=== PATIENT | female | born 1990 | race Caucasian/White ===

== ENCOUNTER 2025-07-10 13:00 | Outpatient (AMB) | payer OTHER, SELFPAY ==
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
[2025-07-10 13:05] VITALS: BP 118/58; PULSE 70; RESP 14; TEMP 36.4; O2SAT 98; BMI 28.9
--- OUTSIDE RECORDS SUMMARY | 2025-07-10 19:32 | XMS_ITS | Clinical Summary ---
Author Organization 175 [facility] Address [address] [place] [address] Phone Care Team Providers Care Scientific Helper Name Role Phone Jennifer Jeronimo MD Primary Care Provider [phone] Allergies No known active allergies Medications dicyclomine (BENTYL) 20 mg tablet TAKE 1 TABLET BY MOUTH 4 TIMES A DAY. 360 tablet 1 12/27/2024 Active Active Problems Problem Noted Date Diagnosed Date Burping 06/17/2024 Epigastric pain 06/17/2024 Heartburn 06/17/2024 Nausea 06/17/2024 Hidradenitis 08/21/2015 Overview (06/17/2024): Dr Gresham ADHD (attention deficit hyperactivity disorder) 02/16/2012 Overview (06/17/2024): [facility], Dr Manzo Anemia 12/03/2009 Immunizations Immunization Administration Dates Next Due Tdap Tetanus diptheria acell ular pertussis (Boostrix; Adacel) 7yo and older 12/30/2010 Surgical History Surgery Date Site/Laterality Comments TONSILLECTOMY 05/2007 PROCEDURE: HISTORICAL TONSILLECTOMY ESOPHAGOGASTRODUODENOSCOPY 02/24/2021 PROCEDURE: MO EGD TRANSORAL BIOPSY SINGLE/MULTIPLE; COMMENT: normal exam, random biopsy pending Medical History Medical History Date Comments Heartburn DX:Heartburn Epigastric pain DX:Epigastric pa in Nausea DX:Nausea Burping DX:Burping Stress at work DX:Stress at wor k Esophageal reflux DX:Esophageal reflux Depressive disorder DX:Depressiv e disorder Family History Medical History Relation Name Comments Breast cancer Aunt Alcohol/Drug Brother Hypertension Father Diabetes Maternal Grandmother Heart failure Mother Hypertension Mother Lung cancer Mother Rheum arthritis Mother Coronary artery disease Paternal Grandfather early in life Stroke Uncle Colon cancer Neg Hx Ovarian cancer Neg Hx Prostate cancer Neg Hx Relation Name Status Comments Aunt Brother Alive Father Alive Maternal Grandmother Alive Mother Alive Paternal Grandfather Uncle Social History Tobacco Use Types Packs/Day Years Used Date Smoking Tobacco: Former Cigarettes Smokeless Tobacco: Never Alcohol Use Standard Drinks/Week Comments Not Currently 0 (1 standard drink = 0.6 oz pur e alcohol) Comments Unknown Sex and Gender Information Value Date Recorded Sex Assigned at Not on file Legal Sex Female 9:12 AM EST Gender Identity Not on file Sexual Orientation Not on file Last Filed Vital Signs Vital Sign Reading Time Taken Comments Blood Pressure 100/80 08/16/2024 1:25 PM EST Pulse 80 08/16/2024 1:25 PM EST Temperature - - Respiratory Rate - - Oxygen Saturation 98% 08/16/2024 1:25 PM EST Inhaled Oxygen Concentration - - Weight 90.3 kg (199 lb) 08/16/2024 1:25 PM EST Height 177.8 cm (5' 10 ) 08/16/2024 1:25 PM EST Body Mass Index 28.55 08/16/2024 1:25 PM EST Plan of Treatment Health Maintenance Due Date Last Done Comments Hepatitis B Vaccines (1 of 3 - 19+ 3-dose series) 2008 HPV Vaccines (1 - 3-dose SCD M series) 2016 Cervical Cancer Screening: P ap Smear 09/07/2021 09/07/2018, 09/07/2018, 09/07/2018 Social Influencers of Health Screening 07/03/2022 Depression Screening 07/31/2024 COVID-19 Vaccine (1 - 2024-2 6 season) 2025 Influenza Vaccine (#1) 2025 DTaP,Tdap,and Td Vaccines (3 - Td or Tdap) 01/19/2026 01/20/2016, 12/30/2010 Cholesterol Screening (Lipid Panel) 09/21/2028 09/21/2023 RSV Immunization Adult Patients (1 - 1-dose 75+ series) 2064 HIV Screening Completed 09/09/2018 Hepatitis C Screening Completed 09/09/2018 HIB Vaccines Aged Out No longer eligi ble based on patient's age to complete this topic Hepatitis A Vaccines Aged Out No long er eligible based on patient's age to complete this topic IPV Vaccines Aged Out No longer eligi ble based on patient's age to complete this topic MMR Vaccines Aged Out No longer eligi ble based on patient's age to complete this topic Meningococcal ACWY Vaccine Aged Out N o longer eligible based on patient's age to complete this topic Meningococcal B Vaccine Aged Out No l onger eligible based on patient's age to complete this topic Pneumococcal Vaccine: Pediatrics (0 to 5 Years) and At-Risk Patients (6 to 49 Years) Aged Out No longer eligible b ased on patient's age to complete this topic RSV Immunization Patients Under 20 months Aged Out No longer eligible b ased on patient's age to complete this topic Varicella Vaccines Aged Out No longer eligible based on patient's age to complete this topic Procedures Procedure Name Priority Date/Time Associated Diagnosis Comments LIPID PANEL Routine 09/21/2023 HEPATITIS C SCREENING Routine 09/09/2018 HIV SCREENING Routine 09/09/2018 PAP SMEAR Routine 09/07/2018 from Last 3 Months or Most Recently Relevant to Health Maintenance Results * Lipid panel (09/21/2023) Pathologist [facility] LDL/HDL Ratio 3 0 - 4 Triglycerides 67 0 - 150 mg/dL Cholesterol 154 0 - 200 mg/dL HDL 60 >=40 mg/dL LDL Cholesterol 81 0 - 100 mg/dL Blood Venous blood specimen / Unknown us Historical Provider LAB BLOOD ORDERABLES Laquita l Result * HIV Screening (09/09/2018) Pathologist [facility] HIV Screening Abstracted us Historical Provider HEALTH MAINTENANCE Final Result * Hepatitis C Screening (09/09/2018) Pathologist [facility] Hepatitis C Screening Abstracted us Historical Provider HEALTH MAINTENANCE Final Result * Pap smear (09/07/2018) 09/07/2018 Narrative HISTORICAL TESTING LAB RESULTING AGENCY - 09/13/2018 5:33 PM EST [id number] THINPREP PAP, IMAGED: NEGATIVE FOR SQUAMOUS INTRAEPITHELIAL LESION AND MALIGNANCY . CLUE CELLS ARE PRESENT. LIDA CHAMBERS(ASCP) (CASE ELECTRONICALLY SIGNED 09 13 2018) ADEQUACY: SATISFACTORY ENDOCERVICAL/TRANSFORMATION ZONE COMPONENT PRESENT. SOURCE: THINPREP PAP HPV IF ASCUS, CERVICAL, IMAGED CLINICAL INFORMATION: HPV IF DIAGNOSIS OF ASCUS. PAP HX NEG [Z12.4, Z01.419] us Kalyani Danyelle CN LAB CYTOLOGY ORDERABLES Final R esult HISTORICAL TESTING LAB RESULTING AGENCY from Last 3 Months or Most Recently Relevant to [place] [id number] [facility] Care Teams Scientific Helper Relationship Specialty Start Date End Date Jennifer Jeronimo MD [address] [place] [phone] PCP - General 09/19/23
--- OUTSIDE RECORDS SUMMARY | 2025-07-10 19:32 | XMS_ITS | Clinical Summary ---
Author Organization [facility] Address [address] [place] [phone] Phone Care Team Providers Care Gauger Chief Name Role Phone Jennifer Jeronimo MD Primary Care Provider [phone] Social History Tobacco Use Types Packs/Day Years Used Date Smoking Tobacco: Never Assessed Comments Unknown Sex and Gender Information Value Date Recorded Sex Assigned at Not on file Legal Sex Female 2:31 PM EDT Gender Identity Not on file Sexual Orientation Not on file Plan of Treatment Not on file Medical Devices Not on file Insurance [facility] NON NSPG PCP [place] [id number] [facility] NON NSPG PCP [employer] NON NSPG PCP [employer] CONNE[employer]ARE [employer] NON NSPG PCP SILVER [employer] NON NSPG PCP [employer] [facility] NON NSPG PCP S[employer] Care Teams Gauger Chief Relationship Specialty Start Date End Date Jennifer Jeronimo MD [address] [place] [phone] PCP - General Internal Medicine 05/27/24 Additional Source Comments The information contained in this document represents components of the legal health record. It is not the complete legal health record.[facility]
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
== END 2025-07-10 14:52 | disposition home or self-care (01) ==
LOC: HO.HMCSH 13:00
PROVIDERS: PCP Physician Assistant Medical; Visit Provider Physician Assistant Medical
DX: Z00.00 Encounter for general adult medical examination without abnormal findings (principal); M89.8X1 Other specified disorders of bone, shoulder; M54.9 Dorsalgia, unspecified; M54.2 Cervicalgia; K59.00 Constipation, unspecified; R10.9 Unspecified abdominal pain; G89.29 Other chronic pain; F41.9 Anxiety disorder, unspecified; F32.A Depression, unspecified; Z23 Encounter for immunization

== ENCOUNTER → 2025-07-10 13:00 | Outpatient (BNVA) | payer OTHER, SELFPAY | PROVIDERS: PCP Physician Assistant Medical; Visit Provider Physician Assistant Medical | DX: Z00.00 Encounter for general adult medical examination without abnormal findings (principal); M54.9 Dorsalgia, unspecified; M89.8X1 Other specified disorders of bone, shoulder; M54.2 Cervicalgia; K59.00 Constipation, unspecified; R10.9 Unspecified abdominal pain; G89.29 Other chronic pain; F41.9 Anxiety disorder, unspecified; F32.A Depression, unspecified | CPT/HCPCS: 90471; 96127; 99385 ==

== ENCOUNTER 2025-07-15 09:52 | Outpatient (REF) | payer OTHER, SELFPAY ==
--- OUTSIDE RECORDS SUMMARY | 2025-07-15 12:01 | XMS_ITS | Clinical Summary ---
Author Organization [facility] Address [address] [place] [phone] Phone Care Team Providers Care Route Supervisor Name Role Phone Jennifer Jeronimo MD Primary Care Provider [phone] Social History Tobacco Use Types Packs/Day Years Used Date Smoking Tobacco: Never Assessed Comments Unknown Sex and Gender Information Value Date Recorded Sex Assigned at Not on file Legal Sex Female 2:31 PM EDT Gender Identity Not on file Sexual Orientation Not on file Plan of Treatment Not on file Medical Devices Not on file Insurance [facility] NON NSPG PCP [place] [id number] [facility] NON NSPG PCP [employer] NON NSPG PCP SILVER CL[employer]ITY CONNECTORCARE [employer] NON NSPG PCP SILVER CL[employer]ITY CONNE[employer]CARE [employer] NON NSPG PCP SIL[employer]ITY CONNE[employer]CARE [facility] NON NSPG PCP [employer] Care Teams Route Supervisor Relationship Specialty Start Date End Date Jennifer Jeronimo MD [address] [place] [phone] PCP - General Internal Medicine 05/27/24 Additional Source Comments The information contained in this document represents components of the legal health record. It is not the complete legal health record.[facility]
--- OUTSIDE RECORDS SUMMARY | 2025-07-15 12:01 | XMS_ITS | Clinical Summary ---
Author Organization 175 [facility] Address [address] [place] [address] Phone Care Team Providers Care Brick Off Bearer Name Role Phone Jennifer Jeronimo MD Primary Care Provider [phone] Allergies No known active allergies Medications dicyclomine [...] 05/2007 PROCEDURE: HISTORICAL TONSILLECTOMY ESOPHAGOGASTRODUODENOSCOPY 02/24/2021 PROCEDURE: PA EGD TRANSORAL BIOPSY SINGLE/MULTIPLE; COMMENT: normal exam, [...] Maintenance Results * Lipid panel (09/21/2023) Pathologist [facility] LDL/HDL Ratio 3 0 - 4 Triglycerides 67 0 - 150 mg/dL Cholesterol 154 0 - 200 mg/dL HDL 60 >=40 mg/dL LDL Cholesterol 81 0 - 100 mg/dL Blood Venous blood specimen / Unknown us Historical Provider LAB BLOOD ORDERABLES Laquita l Result * HIV Screening (09/09/2018) Pathologist [facility] HIV Screening Abstracted us Historical Provider HEALTH MAINTENANCE Final Result * Hepatitis C Screening (09/09/2018) Pathologist [facility] Hepatitis C Screening Abstracted us Historical Provider HEALTH MAINTENANCE Final Result * Pap smear (09/07/2018) 09/07/2018 Narrative HISTORICAL TESTING LAB RESULTING AGENCY - 09/13/2018 5:33 PM EST [id number] THINPREP PAP, IMAGED: NEGATIVE FOR SQUAMOUS INTRAEPITHELIAL [...] Most Recently Relevant to [place] [id number] [facility] Care Teams Brick Off Bearer Relationship Specialty Start Date End Date Jennifer Jeronimo MD [address] [place] [phone] PCP - General 09/19/23
--- OUTSIDE RECORDS SUMMARY | 2025-07-15 12:02 | XMS_ITS | Clinical Summary ---
Author Organization [facility] Address [address] [place] [address] Care Team Providers Care Assembly Riveter Name Role Phone Jennifer Jeronimo MD Primary Care Provider [phone] Allergies No known active allergies Medications methylPREDNISolon [...] patient's age to complete this topic Insurance [facility] [employer] Care Teams Assembly Riveter Relationship Specialty Start Date End Date Jennifer Jeronimo MD [address] [place] [phone] PCP - General 08/06/24
[2025-07-15 13:48] LABS: Appearance Urine Turbid; Glucose Urine UA Negative (Negative); PH 6.0 (5.0-9.0); Specific Gravity - Urine 1.025 (1.005-1.025); UMIC TRIGGER UACC YES
[2025-07-15 14:07] LABS: UACC Culture Trigger YES
[2025-07-15 14:30] LABS: MANUAL DIFF FLAG NO
[2025-07-15 14:50] LABS: Hematocrit 40.3 % (37.0-47.0); Hemoglobin 13.4 g/dl (12.0-16.0); Imm Gran Abs Auto 0.02 X10*3/uL (0.00-0.03); Imm Gran Pct Auto 0.2 % (0.0-0.4); Lymphocytes Absolute Auto 1.8 X10*3/uL (1.2-4.9); Mean Corpuscular HGB Conc 33.3 g/dl (31.0-35.0); Mean Corpuscular Hemoglobin 29.9 pg (27.0-33.0); Mean Corpuscular Volume 90.0 fL (80.0-98.0); NRBC Abs Auto 0.000 X10*3/uL (0.0-0.012); NRBC Pct Auto 0.0 /100WBC (0.0-0.2); Platelet Count 292 X10*3/uL (160-400); Red Blood Count 4.48 X10*6/uL (4.20-5.50); White Blood Count 8.8 X10*3/uL (4.8-10.8)
[2025-07-15 16:07] LABS: Alanine Aminotransferase 23 U/L (0-31); Albumin Level 5.0 g/dL (3.5-5.0); Alkaline Phosphatase 44 U/L (39-117); Anion Gap 11 (12-20); Aspartate Amino Transferase 28 U/L (5-31); Blood Urea Nitrogen 15 mg/dL (9-16); Calcium 9.6 mg/dL (8.4-10.2); Carbon Dioxide 25 mmol/L (22-29); Chloride 107 mmol/L (96-108); Cholesterol 217 mg/dL (<200); Estimated Glomerular Filt Rate > 60; HDL Cholesterol 53 mg/dL (>40); Magnesium 2.3 mg/dL (1.6-2.6); Potassium 4.0 mmol/L (3.3-5.1); Sodium 139 mmol/L (135-145); Total Protein 7.5 g/dL (6.5-8.0); Triglycerides 116 mg/dL (<150)
[2025-07-15 16:29] LABS: Folate 9.2 ng/mL (> or = 4.0); Vitamin B12 653 pg/mL (200-900)
== END 2025-07-15 09:53 | disposition home or self-care (01) ==
LOC: HO.HKASLDS 09:52
PROVIDERS: PCP Physician Assistant Medical; Visit Provider Physician Assistant Medical
DX: Z00.00 Encounter for general adult medical examination without abnormal findings (principal); M89.8X1 Other specified disorders of bone, shoulder; Z01.84 Encounter for antibody response examination
CPT/HCPCS: 36415; 80053; 80061; 81001; 82306; 82607; 82746; 83036; 83735; 84443; 85025; 85652; 86038; 86140; 86431; 87086